=== PATIENT | female | born 1950 | race Caucasian/White ===

== ENCOUNTER 2021-10-18 14:43 | Inpatient (IN) ==
[2021-10-18] MEDS ORDERED: Naloxone 0.4 MG/ML INJ IVP PRN ×2 (18:41→19:32)
[2021-10-18] MEDS ORDERED: *HR* OxyCODONE Immed Rel 5 MG TABLET PO PRN (19:32)
[2021-10-18] MEDS ORDERED: Ondansetron ODT 4 MG TAB.RAPDIS SL PRN (19:32)
[2021-10-18] MEDS ORDERED: Melatonin 3 MG TABLET PO PRN (19:32)
[2021-10-18] MEDS ORDERED: Acetaminophen 325 MG TABLET PO PRN (19:32)
[2021-10-18] MEDS ORDERED: Dextrose 4 GM Chewable Tablets PO PRN ×2 (21:10)
[2021-10-18] MEDS ORDERED: D5% in Water 1,000 ML IVC PRN (21:10)
[2021-10-18] MEDS ORDERED: *HR* Dextrose 50 % in Water (Syg) 50 ML SYRINGE IVP PRN (21:10)
[2021-10-18] MEDS: Insulin LISPRO 300 UNITS/3 ML VIAL SUBQ SCH (21:39)
[2021-10-18] MEDS: *HR* HYDROcodone/Acet 5/325 mg TABLET PO PRN (22:00)
[2021-10-18 22:45] LABS: Bilirubin,Urine Negative (Negative); Blood,Urine Negative (Negative); Clarity,Urine Clear (Clear); Color,Urine Light-Yellow (Yellow); Glucose,Urine (UA) Normal (Normal); Ketones,Urine Negative (Negative); Leukocyte Esterase,Urine Negative (Negative); Nitrite,Urine Negative (Negative); Protein,Urine Trace mg/dL (Neg-Trace); Urobilinogen,Urine Normal (Normal)
[2021-10-18] MEDS: Nystatin POWDER 30 GM BOTTLE TP SCH (23:29)
[2021-10-18 23:38] LABS: Amphetamine Screen,Urine Negative ng/mL (Cutoff=1000); Barbiturate Screen,Urine Negative ng/mL (Cutoff=200); Benzodiazepines Screen,Urine Negative ng/mL (Cutoff=200); Cannabinoid Screen,Urine Negative ng/mL (Cutoff = 50); Cocaine Screen,Urine Negative ng/mL (Cutoff= 300); Opiate Screen,Urine Negative ng/mL (Cutoff=300); Phencyclidine Screen,Urine Negative ng/mL (Cutoff=25)
[2021-10-19] MEDS ORDERED: Chloraseptic Spray 177 ML BOTTLE MM PRN (02:30)
[2021-10-19] MEDS: ALPRAZolam 0.5 MG TABLET PO ONE ×2 (02:43→02:48)
[2021-10-19 05:01] LABS: Adenovirus Not Detected (Not Detect); Coronavirus 229E Not Detected (Not Detect); Coronavirus HKU1 Not Detected (Not Detect); Coronavirus NL63 Not Detected (Not Detect); Coronavirus OC43 Not Detected (Not Detect); Human Metapneumovirus Not Detected (Not Detect); SARS-CoV-2 Not Detected (Not Detect)
[2021-10-19 05:02] LABS: Bordetella Pertussis Not Detected (Not Detect); Chlamydophila pneumoniae Not Detected (Not Detect); Human Rhinovirus/Enterovirus Not Detected (Not Detect); Influenza A Subtype 2009 H1 Not Detected (Not Detect); Influenza B Not Detected (Not Detect); Mycoplasma pneumoniae Not Detected (Not Detect); Parainfluenza Virus 1 Not Detected (Not Detect); Parainfluenza Virus 2 Not Detected (Not Detect); Parainfluenza Virus 3 Not Detected (Not Detect); Parainfluenza Virus 4 Not Detected (Not Detect); Respiratory Syncytial Virus Not Detected (Not Detect)
[2021-10-19 06:14] LABS: INR 1.1; Prothrombin Time 11.7 Seconds (9.4-12.1)
[2021-10-19 06:16] LABS: Activated Partial Thrombo Time 30.7 Seconds (26.0-36.0)
[2021-10-19 06:17] LABS: BUN/Creatinine Ratio 21 (6-26); Blood Urea Nitrogen 20 mg/dL (8-23); Calcium 9.5 mg/dL (8.6-10.3); Carbon Dioxide 25 mEq/L (23-29); Chloride 109 mEq/L (98-107); Chol/HDL Ratio 2.1 (0-4.9); Cholesterol 138 mg/dL (< 200); Glucose 94 mg/dL (70-105); HDL Cholesterol 66 mg/dL (40-59); LDL Cholesterol,Calculated 60 mg/dL (< 100); Magnesium 2.3 mg/dL (1.6-2.6); Osmolality,Calculated 294 (280-300); Phosphorous 3.9 mg/dL (2.7-4.5); Potassium 4.2 mEq/L (3.5-5.1); Sodium 141 mEq/L (136-145); Triglycerides 60 mg/dL (< 150); eGFR For African Americans > 60 (> 60); eGFR For Non-African Americans 58 (> 60)
[2021-10-19 06:42] LABS: Hemoglobin 11.4 g/dL (11.5-15.4); Mean Corpuscular HGB Conc 32.6 g/dL (31.6-35.5); Mean Corpuscular Hemoglobin 29.8 pg (28.0-33.3); Mean Corpuscular Volume 91.6 fL (83.0-100.0); Mean Platelet Volume 11.1 fL (9.4-12.4); Platelet Count 232 K/mcL (140-400); Red Blood Count 3.82 M/mcL (3.82-4.97); Red Cell Distribution Width 14.1 % (11.5-14.5); White Blood Count 8.2 K/mcL (4.3-11.1)
[2021-10-19] MEDS: Insulin LISPRO 300 UNITS/3 ML VIAL SUBQ SCH ×4 (07:22→20:26)
[2021-10-19] MEDS: Nystatin POWDER 30 GM BOTTLE TP SCH ×3 (08:45→20:27)
[2021-10-19] MEDS ORDERED: Nitroglycerin 0.4 MG TAB.SUBL SL PRN (17:56)
[2021-10-19] MEDS: cloNIDine HCL 0.1 MG TABLET PO SCH (20:22)
[2021-10-19] MEDS: *HR* HYDROcodone/Acet 5/325 mg TABLET PO PRN (20:23)
[2021-10-19] MEDS: QUEtiapine Fumarate 25 MG TABLET PO SCH (20:23)
[2021-10-20] MEDS: *HR* Enoxaparin 40 MG/0.4 ML SYRINGE SQ SCH (04:46)
[2021-10-20] MEDS: Nystatin POWDER 30 GM BOTTLE TP SCH ×3 (08:33→20:02)
[2021-10-20] MEDS: cloNIDine HCL 0.1 MG TABLET PO SCH ×2 (08:33→20:02)
[2021-10-20] MEDS: amLODIPine 5 MG TABLET PO SCH (08:33)
[2021-10-20] MEDS: Insulin LISPRO 300 UNITS/3 ML VIAL SUBQ SCH ×4 (08:37→20:02)
[2021-10-20] MEDS: QUEtiapine Fumarate 25 MG TABLET PO SCH (20:02)
[2021-10-21] MEDS: *HR* Enoxaparin 40 MG/0.4 ML SYRINGE SQ SCH (05:42)
[2021-10-21] MEDS: Insulin LISPRO 300 UNITS/3 ML VIAL SUBQ SCH ×4 (07:19→20:39)
[2021-10-21] MEDS: amLODIPine 5 MG TABLET PO SCH (09:01)
[2021-10-21] MEDS: Nystatin POWDER 30 GM BOTTLE TP SCH ×3 (09:02→20:46)
[2021-10-21] MEDS: cloNIDine HCL 0.1 MG TABLET PO SCH ×2 (09:02→20:45)
[2021-10-21] MEDS: QUEtiapine Fumarate 25 MG TABLET PO SCH (20:39)
[2021-10-22 02:29] LABS: Basophils % 0.5 %; Eosinophils # 0.1 K/mcL (0.0-0.6); Eosinophils % 1.3 %; Hematocrit 33.5 % (35.3-44.9); Hemoglobin 10.5 g/dL (11.5-15.4); Immature Granulocytes % 0.4 % (0-4); Lymphocytes # 1.8 K/mcL (0.6-4.6); Lymphocytes % 23.3 %; Mean Corpuscular HGB Conc 31.3 g/dL (31.6-35.5); Mean Corpuscular Hemoglobin 29.1 pg (28.0-33.3); Mean Corpuscular Volume 92.8 fL (83.0-100.0); Mean Platelet Volume 10.8 fL (9.4-12.4); Monocytes # 0.7 K/mcL (0.0-1.3); Monocytes % 8.6 %; Neutrophils # 5.1 K/mcL (1.6-8.9); Platelet Count 185 K/mcL (140-400); Red Blood Count 3.61 M/mcL (3.82-4.97); Red Cell Distribution Width 13.7 % (11.5-14.5); Segmented Neutrophils % 65.9 %; White Blood Count 7.8 K/mcL (4.3-11.1)
[2021-10-22 02:44] LABS: BUN/Creatinine Ratio 34 (6-26); Blood Urea Nitrogen 35 mg/dL (8-23); Carbon Dioxide 24 mEq/L (23-29); Chloride 107 mEq/L (98-107); Glucose 138 mg/dL (70-105); Magnesium 2.1 mg/dL (1.6-2.6); Osmolality,Calculated 296 (280-300); Phosphorous 4.1 mg/dL (2.7-4.5); Potassium 4.1 mEq/L (3.5-5.1); Sodium 138 mEq/L (136-145); eGFR For African Americans > 60 (> 60); eGFR For Non-African Americans 53 (> 60)
[2021-10-22] MEDS: *HR* Enoxaparin 40 MG/0.4 ML SYRINGE SQ SCH (05:52)
[2021-10-22] MEDS: Insulin LISPRO 300 UNITS/3 ML VIAL SUBQ SCH ×3 (07:17→13:19)
[2021-10-22] MEDS: amLODIPine 5 MG TABLET PO SCH (09:19)
[2021-10-22] MEDS: cloNIDine HCL 0.1 MG TABLET PO SCH (09:19)
[2021-10-22] MEDS: Nystatin POWDER 30 GM BOTTLE TP SCH ×2 (09:22→13:19)
[2021-10-22 11:04] VITALS: BP 131/65; PULSE 75; TEMP 98.3; O2SAT 96
[2021-10-22 12:38] LABS: Influenza A PCR Negative (Negative); Influenza B PCR Negative (Negative); Resp. Syncytial Virus PCR Negative (Negative)
[2021-10-22 12:39] LABS: SARS-CoV-2 by PCR (In House) Negative (Negative)
== END 2021-10-22 16:20 | DRG 552 ==
LOC: 3BNU → SUATTDRO 17:47
PROVIDERS: ADMIT Internal Medicine; ATTEND Internal Medicine